=== PATIENT | male | born 2000 | race African-American/Black ===

== ENCOUNTER 2023-07-04 08:53 | Emergency (ER) | payer OTHER, MEDICAID, SELFPAY ==
[2023-07-04 08:59] VITALS: BP 140/99; PULSE 80; RESP 14; TEMP 36.7; O2SAT 99; BMI 27.8
--- NOTE | 2023-07-04 09:31 | PC.NURSE ---
Pt came to the emergency department because [place] the [place], slipped, fell and hit his face which resulted in losing his upper left incisor. Pt reports a 10/10 pain and that he has been having fevers and green drainage from the gums. Pt describes pain as throbbing and tender. No green drainage or fevers is noted at this time. No facial trauma noted. However, pt lost his pants in the [place] and asked if he could have a new pair. Pt was given paper scrubs. Pt a&ox4. [employer] intact VS WNL.
--- NOTE | 2023-07-04 09:37 | ED_ITS ---
HPI - Dental/Oral General Chief complaint: Dental/Oral Stated complaint: lost tooth in acc[place]/ pain on L side of head Time Seen by Provider: 07/04/23 09:36 Source: patient Mode of arrival: Ambulatory Limitations: no limitations History of Present Illness HPI Narrative: 23-year-old male smoker with complaint of dental pain. Patient states his left upper tooth broke off many years ago but it initial teeth broke off 2 days ago and he is had increased pain swelling and what feels like purulent drainage. Patient states he is felt warm. No objective fevers reported. He is pain he has a little bit of localized swelling but denies swelling of his face or redness. No airway involvement or swelling of the tongue. No speech changes. He had some nausea this morning. Patient states has not taken anything for pain today. States no prescription medications. No known drug allergies. Does use tobacco daily, does drink alcohol occasionally, uses marijuana. Related Data Previous Rx's Medication Instructions Recorded penicillin V potassium 500 mg 500 mg PO QID #40 tabs 07/04/23 tablet Allergies Allergy/AdvReac Type Severity Reaction Status Date / Time No Known Drug Allergies Allergy Verified 07/04/23 09:04 Review of Systems Review of Systems ROS Unobtainable: All systems reviewed & are unremarkable except as noted in HPI and below Patient History Social History Smoking Status: Current every day smoker Smoking Status: Current every day smoker alcohol intake frequency: 0-2 drinks per day Substance Use Type: marijuana Exam Narrative Exam Narrative: GEN: well nourished, well appearing male, alert and oriented x 3, patient appears to be in mild distress. HEENT: Atraumatic, pupils are equal round reactive to light, extraocular movements are intact, nares are clear, TMs are clear with no fluid, there is no conjunctival pallor. Throat is clear without any exudates, erythema, tonsillar enlargement or uvular deviation, tooth #5 appears to be broken off at the base. There is some mild swelling and erythema. No obvious fluctuance so would be easily drained. Patient has somewhat poor dentition but other teeth appear to be intact. Normal speech. HEART: Regular rate and rhythm without murmur, clicks, rubs. LUNGS:Lungs clear to auscultation, no wheezes, rales, crackles, chest moves symmetrically ABD:bowel sounds normal, soft, non-tender, no guarding, rebound, rigidity, no masses noted, no hepatosplenomegaly MSCL: Full range of motion, normal gait NEURO:CN 2-12 intact, sensation normal Initial Vital Signs Initial Vital Signs: Vital Signs Temperature 98.0 F 07/04/23 08:59 Pulse Rate 80 07/04/23 08:59 Respiratory Rate 14 07/04/23 08:59 Blood Pressure 140/99 H 07/04/23 08:59 Pulse Oximetry 99 07/04/23 08:59 Oxygen Delivery Method Room Air 07/04/23 08:59 Course Orders Ordered: Discontinued Medications Ibuprofen (Ibuprofen 400 Mg Tablet) 800 mg PO NOW ONE Stop: 07/04/23 09:50 Last Admin: 07/04/23 09:54 Dose: 800 mg Documented By: MICHELLE Penicillin V Potassium (Penicillin Vk 250 Mg Tablet) 500 mg PO NOW ONE Stop: 07/04/23 09:50 Last Admin: 07/04/23 09:54 Dose: 500 mg Documented By: MICHELLE Vital Signs Vital signs: Vital Signs - 8 hr 07/04/23 10:02 Temperature 97.6 F Pulse Rate 98 H Respiratory Rate 20 Blood Pressure 121/67 Pulse Oximetry 100 Oxygen Delivery Method Room Air MDM - Dental/Oral MDM Narrative Medical decision making narrative: 23-year-old male with likely dental infection does have a tooth it was cracked off. Discussed with patient he will need follow-up with dentistry for the tooth. We will cover with an oral antibiotic for the short term. He is not used any pharmaceutical options for pain so will try Tylenol and ibuprofen PRN for pain management. Patient feels comfortable with this plan discussed return precautions. Discharge Plan Departure Patient Disposition: Home Clinical Impression: Pain, dental Activity Restrictions/Additional Instructions: Please follow-up with a dentist in the next week for repair of your tooth or extraction. You can try [facility] if you do not have a dentist [phone] You may take acetaminophen up to a 1000 mg every 6 hours and/or ibuprofen up to 600 mg every 6 hours for pain. Take antibiotics until completed. [facility] [place]. Please return for new redness, swelling or increasing pain of the face, swelling of the tongue, airway, muffled voice or change in voice, persistent vomiting, fevers or other new or concerning changes Prescriptions: New penicillin V potassium 500 mg tablet 500 mg PO QID Qty: 40 0RF Referrals: Miscellaneous,Doctor, MD [Primary Care Provider] - Stand Alone Forms: Patient Portal/API
[2023-07-04] MEDS: IBUPROFEN 400 MG TABLET 800 MG PO (09:54)
[2023-07-04] MEDS: PENICILLIN VK 250 MG TABLET 500 MG PO (09:54)
[2023-07-04 10:02] VITALS: BP 121/67; PULSE 98; RESP 20; TEMP 36.4; O2SAT 100
== END 2023-07-04 10:05 | disposition home or self-care (01) ==
PROVIDERS: Emergency Provider Emergency Medicine
DX: K08.89 Other specified disorders of teeth and supporting structures (principal)
CPT/HCPCS: 99283

== ENCOUNTER 2023-11-22 11:57 | Emergency (ER) | payer SELFPAY ==
[2023-11-22 12:23] VITALS: BP 121/59; PULSE 79; RESP 19; TEMP 36.8; O2SAT 99; BMI 27.1
--- NOTE | 2023-11-22 14:38 | ED.SKABFB ---
HPI - Skin/Abscess/Foreign Bdy <Joey Hael PA-C - Last Filed: 11/23/23 12:22> General Chief complaint: Skin/Abscess/Foreign Body Stated complaint: open wounds over rt side of body Time Seen by Provider: 11/22/23 13:54 Source: patient Mode of arrival: Family Vehicle Limitations: no limitations History of Present Illness HPI narrative: 23-year-old male who was until recently on domicile, presents to the ED with multiple wounds. Patient complains of a wound to the tip of the right thumb, multiple purulent wounds on the right lower leg, a wound to the left foot. Patient states that he had a crack in his left thumb, following which he developed the wound with purulence. The foot wound was due to stepping on a rock in the water. Patient denies fever, chills, nausea, vomiting. There is full range of motion of all extremities. Related Data Previous Rx's Medication Instructions Recorded penicillin V potassium 500 mg 500 mg PO QID #40 tabs 07/04/23 tablet sulfamethoxazole 800 2 tab PO Q12H 7 days #28 tabs 11/22/23 mg-trimethoprim 160 mg tablet (Bactrim DS) Allergies Allergy/AdvReac Type Severity Reaction Status Date / Time No Known Drug Allergies Allergy Verified 11/22/23 12:27 Review of Systems <Joey Hale PA-C - Last Filed: 11/23/23 12:22> Constitutional Constitutional: Denies chills, Denies fatigue, Denies fever(s), Denies frequent falls, Denies lethargy and Denies weakness Eyes Eyes: Denies change in vision, Denies eye discharge, Denies irritation and Denies loss of vision ENT Ears, Nose, Mouth, and Throat: Denies change in voice, Denies dizziness, Denies neck pain, Denies sore throat and Denies throat swelling Cardiovascular Cardiovascular: Denies chest pain, Denies irregular heart rhythm, Denies lightheadedness, Denies palpitations, Denies dyspnea, Denies dyspnea on exertion and Denies orthopnea Respiratory Respiratory: Denies cough, Denies dyspnea, Denies dyspnea on exertion and Denies wheezing Gastrointestinal Gastrointestinal: Denies abdominal pain, Denies change in bowel habits, Denies diarrhea, Denies nausea and Denies vomiting Musculoskeletal Musculoskeletal: Denies neck pain and Denies numbness Integumentary/Breasts Skin/Breast: Denies pruritus, Denies erythema, Denies rash and Reports wounds Neurologic Neurologic: Denies behavioral changes, Denies confusion, Denies dizziness, Denies frequent falls, Denies loss of vision, Denies numbness and Denies weakness Psychiatric Psychiatric: Denies anxiety, Denies behavioral changes, Denies confusion, Denies depression, Denies homicidal ideation and Denies suicidal ideation Endocrine Endocrine: Denies fatigue, Denies flushing and Denies palpitations Hematologic/Lymphatic Hematologic/Lymphatic: Denies easy bruising Allergic/Immunologic Allergic/Immunologic: Denies urticaria, Denies throat swelling and Denies wheezing Patient History <Joey Hale PA-C - Last Filed: 11/23/23 12:22> Social History Smoking Status: Current every day smoker Smoking Status: Current every day smoker alcohol intake frequency: 0-2 drinks per day Substance Use Type: marijuana Exam <Joey Hale PA-C - Last Filed: 11/23/23 12:22> Narrative Exam Narrative: Const General:?cooperative, healthy appearing and comfortable [facility] Head:?normal to inspection Ears:?hearing grossly normal bilaterally Nose:?external nose normal Face and sinus:?normal facial exam and sinuses nontender Mouth:?oral mucosae normal Throat:?posterior oropharynx normal Eyes General:?appearance normal, both eyes and all related structures Neck Neck:?normal visual inspection and no lymphadenopathy noted Resp Effort & Inspection:?normal respiratory effort Auscultation:?clear to auscultation bilaterally Cardio Rate:?regular rate Rhythm:?regular rhythm Integumentary There is a purulent infection to the tip of the right thumb, consistent with a felon. There are multiple purulent wounds on the right lower leg. There appears to be an infected wound between the 3rd and 4th toes of the left foot. Full Range of motion. Strength and sensation intact. Patient is neurovascularly intact. Neuro General:?patient alert, patient awake and patient oriented x3 Initial Vital Signs Initial Vital Signs: Vital Signs Temperature 98.3 F 11/22/23 12:23 Pulse Rate 79 11/22/23 12:23 Respiratory Rate 19 11/22/23 12:23 Blood Pressure 121/59 L 11/22/23 12:23 Pulse Oximetry 99 11/22/23 12:23 Oxygen Delivery Method Room Air 11/22/23 12:23 <DO Ronaldo Lambert Last Filed: 11/23/23 12:25> Initial Vital Signs Initial Vital Signs: Vital Signs Temperature 98.3 F 11/22/23 12:23 Pulse Rate 79 11/22/23 12:23 Respiratory Rate 19 11/22/23 12:23 Blood Pressure 121/59 L 11/22/23 12:23 Pulse Oximetry 99 11/22/23 12:23 Oxygen Delivery Method Room Air 11/22/23 12:23 Procedures <SKYE Blue Last Filed: 11/23/23 12:22> Abscess I/D I&D #1: Site: hand Side (if applicable): right Local Anesthetic: lidocaine 2% Amount of anesthesia used (mL): 4 Technique: incised with #11 blade Packing used?: none Course <SKYE Blue Last Filed: 11/23/23 12:22> Orders Ordered: Discontinued Medications Lidocaine HCl (Lidocaine 2% Inj Sdv 5ml) 5 ml INJ INTRA-OP ONE Stop: 11/22/23 15:16 Last Admin: 11/22/23 16:14 Dose: 5 ml Documented By: RB Vital Signs Vital signs: Vital Signs - 8 hr 11/22/23 12:23 Temperature 98.3 F Pulse Rate 79 Respiratory Rate 19 Blood Pressure 121/59 L Pulse Oximetry 99 Oxygen Delivery Method Room Air <DO Ronaldo Lambert Last Filed: 11/23/23 12:25> Orders Ordered: Discontinued Medications Lidocaine HCl (Lidocaine 2% Inj Sdv 5ml) 5 ml INJ INTRA-OP ONE Stop: 11/22/23 15:16 Last Admin: 11/22/23 16:14 Dose: 5 ml Documented By: RB Vital Signs Vital signs: Vital Signs - 8 hr 11/22/23 12:23 Temperature 98.3 F Pulse Rate 79 Respiratory Rate 19 Blood Pressure 121/59 L Pulse Oximetry 99 Oxygen Delivery Method Room Air MDM - Skin/Abscess/Foreign Bdy <SKYE Blue Last Filed: 11/23/23 12:22> Lab Data 11/22/23 15:19 11/22/23 15:19 Labs: Lab Results 11/22/23 Range/Units 15:19 WBC 9.5 (4.5-11.0) X10^3/uL RBC 4.26 L (4.5-5.9) X10^6/uL Hgb 13.4 L (13.5-17.5) g/dL Hct 39.7 L (41-53) % MCV 93.2 (80-100) fL MCH 31.5 (26-34) PG MCHC 33.8 (30-36) % RDW 13.5 (11.6-14.8) % Plt Count 286 (150-400) X10^3/uL Neut % (Auto) 74.7 (50-75) % Lymph % (Auto) 15.8 L (25-40) % [place] % (Auto) 7.3 (3-14) % Eos % (Auto) 1.8 L (2-4) % Baso % (Auto) 0.4 (0-2) % Neut # (Auto) 7100 H (8170-6454) /uL Lymph # (Auto) 1500 (1789-1020) /uL [place] # (Auto) 700 (0-900) /uL Eos # (Auto) 200 (0-450) /uL Baso # (Auto) 0 (0-100) /uL Sodium 138 (137-145) mmol/L Potassium 4.0 (3.4-5.1) mmol/L Chloride 106 (98-107) mmol/L Carbon Dioxide 27 (22-32) mmol/L BUN 10 (9-20) mg/dL Creatinine 0.60 L (0.66-1.25) mg/dL Estimated GFR > 60 (>60) mL/min BUN/Creatinine Ratio 16.7 (6-22) Glucose 90 (70-100) mg/dL Calcium 8.6 (8.4-10.2) mg/dL Total Bilirubin 0.3 (0.2-1.3) mg/dL AST 37 (17-59) IU/L ALT 61 H (<50) IU/L Alkaline Phosphatase 69 (38-126) U/L Total Protein 7.0 (6.3-8.2) g/dL Albumin 4.1 (3.5-5.0) g/dL Globulin 2.9 (1.7-4.1) g/dL Albumin/Globulin Ratio 1.4 (1.0-2.8) MDM Narrative Medical decision making narrative: 23-year-old male who was until recently on domicile, presents to the ED with multiple wounds. The thumb wound is most consistent with a felon. I&D was performed and wound bandaged. Other skin wounds most consistent with a staph infection/cellulitis. Prescribed oral antibiotics. ED return precautions discussed with patient. Patient verbalized understanding. Medical records reviewed: Yes <Matt Gutierrez DO - Last Filed: 11/23/23 12:25> Lab Data Labs: Lab Results 11/22/23 Range/Units 15:19 WBC 9.5 (4.5-11.0) X10^3/uL RBC 4.26 L (4.5-5.9) X10^6/uL Hgb 13.4 L (13.5-17.5) g/dL Hct 39.7 L (41-53) % MCV 93.2 (80-100) fL MCH 31.5 (26-34) PG MCHC 33.8 (30-36) % RDW 13.5 (11.6-14.8) % Plt Count 286 (150-400) X10^3/uL Neut % (Auto) 74.7 (50-75) % Lymph % (Auto) 15.8 L (25-40) % [place] % (Auto) 7.3 (3-14) % Eos % (Auto) 1.8 L (2-4) % Baso % (Auto) 0.4 (0-2) % Neut # (Auto) 7100 H (9849-6294) /uL Lymph # (Auto) 1500 (3782-1607) /uL [place] # (Auto) 700 (0-900) /uL Eos # (Auto) 200 (0-450) /uL Baso # (Auto) 0 (0-100) /uL Sodium 138 (137-145) mmol/L Potassium 4.0 (3.4-5.1) mmol/L Chloride 106 (98-107) mmol/L Carbon Dioxide 27 (22-32) mmol/L BUN 10 (9-20) mg/dL Creatinine 0.60 L (0.66-1.25) mg/dL Estimated GFR > 60 (>60) mL/min BUN/Creatinine Ratio 16.7 (6-22) Glucose 90 (70-100) mg/dL Calcium 8.6 (8.4-10.2) mg/dL Total Bilirubin 0.3 (0.2-1.3) mg/dL AST 37 (17-59) IU/L ALT 61 H (<50) IU/L Alkaline Phosphatase 69 (38-126) U/L Total Protein 7.0 (6.3-8.2) g/dL Albumin 4.1 (3.5-5.0) g/dL Globulin 2.9 (1.7-4.1) g/dL Albumin/Globulin Ratio 1.4 (1.0-2.8) Discharge Plan Departure Patient Disposition: Home Clinical Impression: Harry, Cellulitis Instructions: DI for Cellulitis -- Adult, DI for Harry Activity Restrictions/Additional Instructions: You were evaluated in the ED today for a thumb wound, right leg wounds, left foot wound. It appears that you have a skin infection or cellulitis. You are being prescribed an antibiotic. Please take the antibiotics as prescribed. Please follow-up with your primary care doctor as soon as possible. Return to the ED if you have worsening symptoms. Prescriptions: New sulfamethoxazole-trimethoprim [Bactrim DS] 800-160 mg tablet 2 tab PO Q12H 7 Days Qty: 28 0RF No Action penicillin V potassium 500 mg tablet 500 mg PO QID Qty: 40 0RF Referrals: Miscellaneous,Doctor, MD [Primary Care Provider] - Stand Alone Forms: Patient Portal/API ED Sign-out <Matt Gutierrez DO - Last Filed: 11/23/23 12:25> [facility]: Dr Gutierrez Co-Sign Statement: I was available for consultation during this patient's emergency department visit. This chart is signed by myself for administrative purposes only. I did not have direct contact with this patient during this visit. They were seen independently by the APC.
[2023-11-22 14:47] VITALS: BP 135/59; PULSE 71; RESP 18; TEMP 36.9; O2SAT 100
--- NOTE | 2023-11-22 14:48 | PC.NURSE ---
PT reports left foot wound between 3 and 4th toe the past 2 weeks which happened while treasure hunting the [employer] and scraping his foot. Pt has multiple scabs that are red and swollen on right leg, calf, and knee. Pt's right thumb has a wound at the nail bed which he states he poked open d/t swelling.
[2023-11-22 15:37] LABS: Add Manual Diff / Slide Review NO; Basophils Absolute Auto 0 /uL (0-100); Basophils Percent Auto 0.4 % (0-2); Eosinophils Absolute Auto 200 /uL (0-450); Eosinophils Percent Auto 1.8 % (2-4); Hematocrit 39.7 % (41-53); Hemoglobin 13.4 g/dL (13.5-17.5); Lymphocytes Absolute Auto 1500 /uL (1100-4500); Lymphocytes Percent Auto 15.8 % (25-40); Mean Corpuscular HGB Conc 33.8 % (30-36); Mean Corpuscular Hemoglobin 31.5 PG (26-34); Mean Corpuscular Volume 93.2 fL (80-100); Monocytes Absolute Auto 700 /uL (0-900); Monocytes Percent Auto 7.3 % (3-14); Neutrophils Absolute Auto 7100 /uL (1500-7000); Neutrophils Percent Auto 74.7 % (50-75); Platelet Count 286 X10^3/uL (150-400); Red Blood Cell Count 4.26 X10^6/uL (4.5-5.9); Red Cell Distribution Width 13.5 % (11.6-14.8); White Blood Cell Count 9.5 X10^3/uL (4.5-11.0)
[2023-11-22 15:49] LABS: Alanine Aminotransferase 61 IU/L (<50); Albumin 4.1 g/dL (3.5-5.0); Albumin Globulin Ratio 1.4 (1.0-2.8); Alkaline Phosphatase 69 U/L (38-126); Aspartate Aminotransferase 37 IU/L (17-59); BUN Creatinine Ratio 16.7 (6-22); Bilirubin Total 0.3 mg/dL (0.2-1.3); Blood Urea Nitrogen 10 mg/dL (9-20); Calcium 8.6 mg/dL (8.4-10.2); Carbon Dioxide 27 mmol/L (22-32); Chloride 106 mmol/L (98-107); Estimated Glomerular Filt Rate > 60 mL/min (>60); Globulin 2.9 g/dL (1.7-4.1); Glucose 90 mg/dL (70-100); HEMOLYSIS < 15 (0-50); Sodium 138 mmol/L (137-145)
[2023-11-22] MEDS: LIDOCAINE 2% INJ SDV 5ML 5 ML INJ (16:14)
[2023-11-22 16:37] VITALS: BP 125/60; PULSE 79; RESP 18; TEMP 36.8; O2SAT 99
== END 2023-11-22 16:38 | disposition home or self-care (01) ==
PROVIDERS: Emergency Provider Student in an Organized Health Care Education/Training Program
DX: L03.113 Cellulitis of right upper limb (principal); L02.511 Cutaneous abscess of right hand
CPT/HCPCS: 10060; 36415; 80053; 85025; 87040; 99283